=== PATIENT | female | born 2000 | race Two or more races ===

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

== ENCOUNTER 2019-01-21 14:29 | Emergency (ER) | payer MEDICAID, OTHER ==
[~2019-01-21] VITALS: Ht 160 cm; Wt 72.6 kg
[2019-01-21 14:40] VITALS: BP 139/78
== END 2019-01-21 15:38 | disposition home or self-care (01) ==
LOC: ER 14:29
DX: L73.9 Follicular disorder, unspecified (principal); J45.909 Unspecified asthma, uncomplicated

== ENCOUNTER 2019-02-13 21:13 | Emergency (ER) | payer MEDICAID ==
[~2019-02-13] VITALS: Ht 162.6 cm; Wt 75.3 kg
[2019-02-13 21:36] VITALS: BP 132/75
== END 2019-02-14 | disposition left against medical advice (07) ==
LOC: ER 21:13
DX: S69.81XA Other specified injuries of right wrist, hand and finger(s), initial encounter (principal); Z53.21 Procedure and treatment not carried out due to patient leaving prior to being seen by health care provider; W26.8XXA Contact with other sharp object(s), not elsewhere classified, initial encounter; Y93.89 Activity, other specified; Y92.89 Other specified places as the place of occurrence of the external cause; Y99.8 Other external cause status
CPT/HCPCS: 73130

== ENCOUNTER 2019-02-14 06:59 | Emergency (ER) | payer MEDICAID ==
[~2019-02-14] VITALS: Ht 162.6 cm; Wt 72.6 kg
[2019-02-14 07:31] VITALS: BP 125/77
[2019-02-14] MEDS ORDERED: cefTRIAXone SOD 1,000 MG VL IM ONE (07:45)
[2019-02-14] MEDS ORDERED: HYDROcodone-ACET 10/325MG TAB PO ONE (08:00)
[2019-02-14 08:30] LABS: Urine Bacteria MOD /hpf (None Seen); Urine Blood Negative /uL (Negative); Urine Specific Gravity 1.033 (1.001-1.035); Urine WBC 40 /hpf (0 - 5)
[2019-02-14 08:51] LABS: Urine Mucus MOD (None Seen)
== END 2019-02-14 08:29 | disposition home or self-care (01) ==
LOC: ER 06:59
DX: S62.336A Displaced fracture of neck of fifth metacarpal bone, right hand, initial encounter for closed fracture (principal); N39.0 Urinary tract infection, site not specified; J45.909 Unspecified asthma, uncomplicated; F17.210 Nicotine dependence, cigarettes, uncomplicated; W22.01XA Walked into wall, initial encounter; Y93.89 Activity, other specified; Y92.89 Other specified places as the place of occurrence of the external cause; Y99.8 Other external cause status
CPT/HCPCS: 29125; 73110; 73130; 81001; 87086; 96372; 99284; J0696

== ENCOUNTER 2019-03-23 00:17 | Emergency (ER) | payer MEDICAID, OTHER ==
[~2019-03-23] VITALS: Ht 160 cm; Wt 63.5 kg
[2019-03-23 00:39] VITALS: BP 135/86
[2019-03-23 01:26] LABS: Urine Bacteria NONE SEEN /hpf (None Seen); Urine Blood 2+ /uL (Negative); Urine Mucus MODERATE (None Seen); Urine Specific Gravity 1.035 (1.001-1.035); Urine WBC 4 /hpf (0 - 5)
[2019-03-23 02:00] LABS: Basophils # (auto) 0 uL; Basophils % (auto) 0.3 % (0.0-2.0); Eosinophils # (auto) 0.2 uL; Eosinophils % (auto) 2.8 % (0.0-7.0); Hemoglobin 13.4 g/dL (12.2-16.2); Lymphocytes # (auto) 2.5 uL; Lymphocytes % (auto) 33.7 % (10.0-50.0); Mean Corpuscular Hemoglobin 28.1 pg (28.0-32.0); Mean Corpuscular Hgb Conc. 32.8 g/dL (32.0-36.0); Mean Corpuscular Volume 85.9 fL (80.0-100.0); Monocytes # (auto) 0.7 uL; Monocytes % (auto) 9.1 % (0.0-12.0); Neutrophils % (auto) 54.1 % (37.0-80.0); Platelet Count (auto) 289 10^3/uL (140-450); Red Blood Cells 4.77 10^6/uL (4.0-5.20); Red Cell Distribution Width 13.5 % (11.8-14.3); White Blood Cell 7.5 10^3/uL (4.4-10.8)
[2019-03-23 02:14] LABS: INR 0.98 (0.9-1.15); Partial Thromboplastin Time 25.4 sec (23.64-32.05)
[2019-03-23 02:21] LABS: BUN/Creatinine Ratio 19.4; Calcium 8.9 mg/dL (8.5-10.1); Potassium 3.7 mmol/L (3.5-5.1)
[2019-03-23 02:27] LABS: Bilirubin, Total 0.2 mg/dL (0.2-1.0); Total Protein 7.5 g/dL (6.4-8.2)
== END 2019-03-23 03:05 | disposition left against medical advice (07) ==
LOC: ER 00:19
DX: R10.2 Pelvic and perineal pain (principal); Z32.01 Encounter for pregnancy test, result positive; Z53.21 Procedure and treatment not carried out due to patient leaving prior to being seen by health care provider
CPT/HCPCS: 36415; 80053; 81001; 81025; 84702; 85025; 85610; 85730

== ENCOUNTER 2020-08-09 05:21 | Emergency (ER) | payer MEDICAID, OTHER ==
[~2020-08-09] VITALS: Ht 160 cm; Wt 79.8 kg
[2020-08-09 05:50] VITALS: BP 110/65
[2020-08-09] MEDS ORDERED: ACETAMINOPHEN 500 MG TAB PO ONE (07:30)
[2020-08-09 07:45] LABS: Urine Bacteria NONE SEEN /hpf (None Seen); Urine Blood Negative /uL (Negative); Urine Mucus FEW (None Seen); Urine Specific Gravity 1.023 (1.001-1.035); Urine WBC 29 /hpf (0 - 5)
[2020-08-09] MEDS ORDERED: cefTRIAXone SOD 1,000 MG VL IM ONE (08:00)
== END 2020-08-09 08:30 | disposition home or self-care (01) ==
LOC: ER 05:21
DX: O26.892 Other specified pregnancy related conditions, second trimester (principal); S39.012A Strain of muscle, fascia and tendon of lower back, initial encounter; F17.210 Nicotine dependence, cigarettes, uncomplicated; Z3A.20 20 weeks gestation of pregnancy; X50.1XXA Overexertion from prolonged static or awkward postures, initial encounter; Y93.89 Activity, other specified; Y92.89 Other specified places as the place of occurrence of the external cause; Y99.8 Other external cause status
CPT/HCPCS: 76805; 81001; 96372; 99284; J0696

== ENCOUNTER 2020-09-30 13:55 | Observation (INO) | payer MEDICAID ==
[2020-09-30] MEDS ORDERED: ALBU0.084 IN (14:53)
[2020-09-30] MEDS ORDERED: PREN-96 PO (14:53)
== END 2020-09-30 15:47 | disposition home or self-care (01) ==
LOC: LDRP 13:55
PROVIDERS: ADMIT Specialist; ATTEND Specialist
DX: O26.853 Spotting complicating pregnancy, third trimester (principal); O62.9 Abnormality of forces of labor, unspecified; Z3A.28 28 weeks gestation of pregnancy
CPT/HCPCS: 59025; 76815; 81002; G0378

== ENCOUNTER 2020-10-04 18:00 | Observation (INO) | payer MEDICAID ==
[~2020-10-04] VITALS: Ht 162.6 cm; Wt 85.3 kg
[~2020-10-04 18:00] MED LIST: ALBU0.084 IN; PREN-96 PO
[2020-10-04 20:28] LABS: Alcohol, Urine < 3.0 mg/dL (0-10); Amphetamine Screen, Urine NEGATIVE (NEGATIVE); Barbiturate Scree,Urine NEGATIVE (NEGATIVE); Cannabinoid Screen, Urine NEGATIVE (NEGATIVE); Cocaine Screen, Urine NEGATIVE (NEGATIVE); Opiate Scree,Urine NEGATIVE (NEGATIVE); Phencyclidine Screen, Urine NEGATIVE (NEGATIVE)
[2020-10-04 20:32] LABS: Benzodiazephine Screen, Urine NEGATIVE (NEGATIVE)
== END 2020-10-04 20:14 | disposition home or self-care (01) ==
LOC: LDRP 18:00
PROVIDERS: ADMIT Specialist; ATTEND Specialist
DX: O62.9 Abnormality of forces of labor, unspecified (principal); O26.853 Spotting complicating pregnancy, third trimester; O26.893 Other specified pregnancy related conditions, third trimester; R03.0 Elevated blood-pressure reading, without diagnosis of hypertension; R06.02 Shortness of breath; Z3A.29 29 weeks gestation of pregnancy; Z79.899 Other long term (current) drug therapy
CPT/HCPCS: 59025; 80307; 81002; 84112; G0378; Q0114

== ENCOUNTER 2020-12-08 20:43 | Observation (INO) | payer MEDICAID | END 2020-12-08 22:46 | disposition home or self-care (01) | LOC: LDRP 20:43 | PROVIDERS: ADMIT Obstetrics & Gynecology; ATTEND Obstetrics & Gynecology | DX: O26.893 Other specified pregnancy related conditions, third trimester (principal); R10.9 Unspecified abdominal pain; Z3A.37 37 weeks gestation of pregnancy | CPT/HCPCS: 59025; 81002; 84112; G0378; Q0114 ==

== ENCOUNTER 2021-04-13 04:25 | Emergency (ER) | payer MEDICAID, OTHER ==
[~2021-04-13] VITALS: Ht 162.6 cm; Wt 75.3 kg
[2021-04-13] MEDS ORDERED: ALPRAZolam 0.5 MG TAB PO ONE (07:30)
[2021-04-13] MEDS ORDERED: KETOROLAC TROMETH 60MG/2ML VIAL IM ONE (07:30)
[2021-04-13 07:33] VITALS: BP 127/77
== END 2021-04-13 10:57 | disposition home or self-care (01) ==
LOC: ER 04:25
DX: S39.012A Strain of muscle, fascia and tendon of lower back, initial encounter (principal); S40.021A Contusion of right upper arm, initial encounter; S70.11XA Contusion of right thigh, initial encounter; F41.8 Other specified anxiety disorders; J45.909 Unspecified asthma, uncomplicated; F17.210 Nicotine dependence, cigarettes, uncomplicated; Z79.899 Other long term (current) drug therapy; W11.XXXA Fall on and from ladder, initial encounter; Y93.89 Activity, other specified; Y92.89 Other specified places as the place of occurrence of the external cause; Y99.8 Other external cause status
CPT/HCPCS: 96372; 99283; J1885

== ENCOUNTER 2021-06-10 20:47 | Emergency (ER) | payer MEDICAID ==
[~2021-06-10] VITALS: Ht 160 cm; Wt 72.6 kg
[2021-06-10] MEDS ORDERED: LORazepam 2MG/ML-1ML VIAL IV ONE (21:45)
[2021-06-10] MEDS ORDERED: SODIUM CHLORIDE 0.9% 1,000 ML IV ONE (21:45)
[2021-06-10 23:19] LABS: Basophils # (auto) 0 10 ^3/uL (0-0.2); Basophils % (auto) 0.3 % (0.0-2.0); Eosinophils # (auto) 0.1 10 ^3/uL (0-0.8); Eosinophils % (auto) 1.5 % (0.0-7.0); Hematocrit 40.6 % (36.0-46.0); Hemoglobin 12.8 g/dL (12.2-16.2); Lymphocytes # (auto) 1.3 10 ^3/uL (0.4-5.4); Mean Corpuscular Hgb Conc. 31.5 g/dL (32.0-36.0); Mean Corpuscular Volume 79.4 fL (80.0-100.0); Monocytes # (auto) 0.8 10 ^3/uL (0-1.3); Monocytes % (auto) 11.6 % (0.0-12.0); Neutrophils # (auto) 4.5 10 ^3/uL (1.6-8.6); Neutrophils % (auto) 67.6 % (37.0-80.0); Nucleated Red Blood Cells % 0.1 %; Red Blood Cells 5.11 10^6/uL (4.0-5.20); Red Cell Distribution Width 18.1 % (11.8-14.3); White Blood Cell 6.7 10^3/uL (4.4-10.8)
[2021-06-10 23:52] LABS: Urine Bacteria FEW /hpf (None Seen); Urine Blood Negative /uL (Negative); Urine Mucus FEW (None Seen); Urine Specific Gravity 1.025 (1.001-1.035); Urine WBC 5 /hpf (0 - 5)
[2021-06-10 23:54] LABS: Acetaminophen 15.8 ug/mL (10-30); Calcium 8.7 mg/dL (8.5-10.1); Potassium 3.6 mmol/L (3.5-5.1); Salicylate < 1.7 mg/dL (2.8-20.0)
[2021-06-10 23:55] LABS: Amphetamine Screen, Urine POSITIVE (NEGATIVE); Barbiturate Scree,Urine NEGATIVE (NEGATIVE); Benzodiazephine Screen, Urine NEGATIVE (NEGATIVE); Cannabinoid Screen, Urine NEGATIVE (NEGATIVE); Cocaine Screen, Urine NEGATIVE (NEGATIVE); Opiate Scree,Urine NEGATIVE (NEGATIVE); Phencyclidine Screen, Urine NEGATIVE (NEGATIVE)
[2021-06-10 23:58] LABS: Bilirubin, Total 0.4 mg/dL (0.2-1.0); Total Protein 8.1 g/dL (6.4-8.2)
[2021-06-11 12:00] VITALS: BP 130/79
== END 2021-06-11 14:08 | disposition home or self-care (01) ==
LOC: ER 20:48
DX: T42.4X2A Poisoning by benzodiazepines, intentional self-harm, initial encounter (principal); F41.9 Anxiety disorder, unspecified; F32.9 Major depressive disorder, single episode, unspecified; R94.31 Abnormal electrocardiogram [ECG] [EKG]; J45.909 Unspecified asthma, uncomplicated; F12.10 Cannabis abuse, uncomplicated; Y92.89 Other specified places as the place of occurrence of the external cause
CPT/HCPCS: 36415; 80053; 80307; 80329; 81001; 85025; 93005; 96361; 96374; 99285; J2060; J7030

== ENCOUNTER 2021-09-02 09:39 | Emergency (ER) | payer MEDICAID ==
[~2021-09-02] VITALS: Ht 162.6 cm; Wt 73.9 kg
[2021-09-02 10:44] LABS: Basophils # (auto) 0 10 ^3/uL (0-0.2); Eosinophils # (auto) 0.2 10 ^3/uL (0-0.8); Lymphocytes # (auto) 1.3 10 ^3/uL (0.4-5.4); Monocytes # (auto) 0.5 10 ^3/uL (0-1.3); Neutrophils % (auto) 61.8 % (37.0-80.0); Red Cell Distribution Width 15.3 % (11.8-14.3)
[2021-09-02 10:46] LABS: Basophils % (auto) 0.3 % (0.0-2.0); Eosinophils % (auto) 3.8 % (0.0-7.0); Hematocrit 37.4 % (36.0-46.0); Hemoglobin 12.1 g/dL (12.2-16.2); Lymphocytes % (auto) 25.2 % (10.0-50.0); Mean Corpuscular Hemoglobin 25.6 pg (28.0-32.0); Mean Corpuscular Hgb Conc. 32.3 g/dL (32.0-36.0); Mean Corpuscular Volume 79.2 fL (80.0-100.0); Monocytes % (auto) 8.9 % (0.0-12.0); Neutrophils # (auto) 3.3 10 ^3/uL (1.6-8.6); Nucleated Red Blood Cells % 0.1 %; Red Blood Cells 4.72 10^6/uL (4.0-5.20); White Blood Cell 5.3 10^3/uL (4.4-10.8)
[2021-09-02 11:03] LABS: Albumin 3.5 g/dL (3.4-5.0); Calcium 8.5 mg/dL (8.5-10.1); Potassium 4.1 mmol/L (3.5-5.1)
[2021-09-02 11:09] LABS: Bilirubin, Total 0.2 mg/dL (0.2-1.0); Total Protein 6.8 g/dL (6.4-8.2)
[2021-09-02 11:30] LABS: Urine Bacteria FEW /hpf (None Seen); Urine Blood Negative /uL (Negative); Urine WBC 8 /hpf (0 - 5)
[2021-09-02] MEDS ORDERED: NITR-87 PO (11:54)
[2021-09-02 12:15] VITALS: BP 103/56
== END 2021-09-02 12:59 | disposition home or self-care (01) ==
LOC: ER 09:39
DX: N39.0 Urinary tract infection, site not specified (principal); F15.10 Other stimulant abuse, uncomplicated
CPT/HCPCS: 36415; 74176; 80053; 81001; 84702; 85025

== ENCOUNTER 2022-06-12 23:55 | Emergency (ER) | payer MEDICAID ==
[~2022-06-12] VITALS: Ht 160 cm; Wt 68.0 kg
[~2022-06-12 23:55] MED LIST changes: +NITR-87 PO
[2022-06-13 03:58] VITALS: BP 133/89
== END 2022-06-13 04:06 | disposition home or self-care (01) ==
LOC: ER 23:55
DX: M54.2 Cervicalgia (principal); M25.512 Pain in left shoulder; M25.511 Pain in right shoulder; F17.210 Nicotine dependence, cigarettes, uncomplicated; F15.10 Other stimulant abuse, uncomplicated

== ENCOUNTER 2022-07-18 10:45 | Observation (INO) | payer MEDICAID ==
[~2022-07-18] VITALS: Ht 165.1 cm; Wt 73.9 kg
[2022-07-18 10:59] VITALS: BP 106/55
== END 2022-07-18 13:36 | disposition home or self-care (01) ==
LOC: ER 10:45 → LDRP 11:08 → UNDOADMOB 11:08 → LDRP 11:19 → UNDODISOB 13:36
PROVIDERS: ADMIT Obstetrics & Gynecology; ATTEND Obstetrics & Gynecology
DX: O46.92 Antepartum hemorrhage, unspecified, second trimester (principal); N93.9 Abnormal uterine and vaginal bleeding, unspecified; O99.342 Other mental disorders complicating pregnancy, second trimester; F41.9 Anxiety disorder, unspecified; Z3A.22 22 weeks gestation of pregnancy
CPT/HCPCS: 59025; 76805; 81002; 99284; G0378

== ENCOUNTER 2022-08-31 17:21 | Observation (INO) | payer MEDICAID | END 2022-08-31 19:08 | disposition home or self-care (01) | LOC: LDRP 17:21 | PROVIDERS: ADMIT Obstetrics & Gynecology; ATTEND Obstetrics & Gynecology | DX: O98.112 Syphilis complicating pregnancy, second trimester (principal); O62.9 Abnormality of forces of labor, unspecified; Z3A.27 27 weeks gestation of pregnancy; Z91.040 Latex allergy status | CPT/HCPCS: 59025; 81002; 94760; G0378 ==

== ENCOUNTER 2022-09-20 13:45 | Observation (INO) | payer MEDICAID | END 2022-09-20 15:05 | disposition home or self-care (01) | LOC: LDRP 13:45 | PROVIDERS: ADMIT Obstetrics & Gynecology; ATTEND Obstetrics & Gynecology | DX: O36.8330 Maternal care for abnormalities of the fetal heart rate or rhythm, third trimester, not applicable or unspecified (principal); O26.893 Other specified pregnancy related conditions, third trimester; R10.9 Unspecified abdominal pain; Z3A.30 30 weeks gestation of pregnancy | CPT/HCPCS: 59025; 81002; 84112; 94760; G0378; Q0114 ==

== ENCOUNTER → 2024-03-13 | Emergency (ER) | payer MEDICAID ==
[~2024-03-13] VITALS: Ht 162.6 cm; Wt 70.5 kg
[~2024-03-13] MED LIST changes: +CYCL-837 PO
[2024-03-13 22:35] VITALS: BP 145/68; PULSE 79; TEMP 98.2
[2024-03-13 22:45] VITALS: RESP 16; O2SAT 100
[2024-03-13] MEDS: KETOROLAC TROMETH 30 MG/ML 1ML VIAL IM ONE (22:59)
[2024-03-13] MEDS: ONDANSETRON HCL 4 MG/2 ML VIAL IM ONE (23:00)
== END | disposition home or self-care (01) ==
LOC: ER 20:45
DX: S16.1XXA Strain of muscle, fascia and tendon at neck level, initial encounter (principal); G44.209 Tension-type headache, unspecified, not intractable; M62.838 Other muscle spasm; F15.10 Other stimulant abuse, uncomplicated; X58.XXXA Exposure to other specified factors, initial encounter; Y93.89 Activity, other specified; Y92.89 Other specified places as the place of occurrence of the external cause; Y99.8 Other external cause status
CPT/HCPCS: 70450; 72125; 96372; 99285; J1885; J2405